=== PATIENT | male | born 1985 | race African-American/Black ===

== ENCOUNTER 2022-11-09 17:10 | Emergency (ER) | payer OTHER ==
[2022-11-09] MEDS ORDERED: morphine SULFATE 4 MG/ML VIAL IVPUSH ONE (17:16)
[2022-11-09 17:22] VITALS: BMI 30.6
[2022-11-09] MEDS ORDERED: SODIUM CHLORIDE 1,000 ML IV ONE (17:23)
[2022-11-09 17:41] LABS: BASO % 1.4 % (0-2.0); EOS % 2.5 % (0-4.5); HEMATOCRIT 39.9 % (35.4-49); LYMPH % 52.6 % (8-40); MCH 30.7 pg (25.7-33.7); MCHC 32.6 g/dl (32.0-35.9); MEAN PLT VOLUME 7.8 fl (7.5-11.1); MONO % 15.3 % (3.8-10.2); NEUT % 28.2 % (42.8-82.8); PLATELET COUNT 210 10^3/uL (134-434); RBC 4.24 M/mm3 (4.00-5.60); RDW 13.8 % (11.9-15.9); WHITE BLOOD COUNT 4.4 K/mm3 (4.0-10.0)
[2022-11-09] MEDS ORDERED: DIPHTH,PERTUSS(ACELL),TET 0.5 ML DISP.SYRIN IM ONE ×2 (17:41→18:03)
[2022-11-09 17:50] LABS: INR 1.07 (0.83-1.09); PROTHROMBIN TIME (PATIENT) 12.3 SEC (9.7-13.0)
[2022-11-09] MEDS ORDERED: morphine SULFATE 4 MG/ML VIAL ONE (18:02)
[2022-11-09 18:07] LABS: BLOOD UREA NITROGEN 11.8 mg/dL (7-18); CALCIUM 8.7 mg/dL (8.5-10.1)
[2022-11-09 18:11] LABS: CREATININE 1.1 mg/dL (0.55-1.3)
[2022-11-09 18:12] LABS: BILIRUBIN,TOTAL 0.4 mg/dL (0.2-1); TOT PROT 7.8 g/dl (6.4-8.2)
[2022-11-09] MEDS ORDERED: LIDOCAINE HCL 1%, 10 MG/ML (20ML VIAL) ONE (18:33)
[2022-11-09 21:33] VITALS: BP 134/80; PULSE 84; RESP 18
== END 2022-11-09 21:35 | disposition home or self-care (01) ==
LOC: JER 17:10
PROC: 0HQCXZZ Repair Left Upper Arm Skin, External Approach (ICD-10-PCS; principal; 2022-11-09)
PROC: 3E033GC Introduction of Other Therapeutic Substance into Peripheral Vein, Percutaneous Approach (ICD-10-PCS; 2022-11-09)
PROC: 3E0234Z Introduction of Serum, Toxoid and Vaccine into Muscle, Percutaneous Approach (ICD-10-PCS; 2022-11-09)
DX: S41.132A Puncture wound without foreign body of left upper arm, initial encounter (principal); X99.1XXA Assault by knife, initial encounter
CPT/HCPCS: 12002-25; 36415; 71046-TC-FY; 80053; 85025; 85610; 86850; 86900; 86901; 90471; 90715; 96361; 96374; 99285-25

== ENCOUNTER 2024-01-06 07:38 | Emergency (ER) | payer OTHER ==
[2024-01-06 08:04] VITALS: BMI 29.8
[2024-01-06 08:41] LABS: BASO % 0.3 % (0-2.0); EOS % 0.1 % (0-4.5); HEMATOCRIT 40.7 % (35.4-49); LYMPH % 12.4 % (8-40); MCH 32.2 pg (25.7-33.7); MCHC 34.4 g/dl (32.0-35.9); MEAN CELL VOLUME 93.7 fl (80-96); MEAN PLT VOLUME 7.4 fl (7.5-11.1); MONO % 6.4 % (3.8-10.2); NEUT % 80.8 % (42.8-82.8); PLATELET COUNT 256 10^3/uL (134-434); RBC 4.35 M/mm3 (4.00-5.60); RDW 14.1 % (11.9-15.9); WHITE BLOOD COUNT 7.4 K/mm3 (4.0-10.0)
[2024-01-06] MEDS ORDERED: levETIRAcetam 500 MG/5 ML INJECTION VIAL IVPB ONE (08:49)
[2024-01-06 08:53] LABS: PROTHROMBIN TIME (PATIENT) 11.6 SEC (9.7-13.0)
[2024-01-06 08:56] LABS: ACTIVATED PTT 27.3 SECONDS (25.2-36.5)
[2024-01-06 09:07] LABS: POTASSIUM 4.5 mmol/L (3.5-5.1)
[2024-01-06 09:09] LABS: ALBUMIN 3.9 g/dl (3.4-5.0); CALCIUM 9.7 mg/dL (8.5-10.1)
[2024-01-06 09:10] LABS: BLOOD UREA NITROGEN 14.2 mg/dL (7-18); MAGNESIUM 2.6 mg/dL (1.8-2.4)
[2024-01-06 09:13] LABS: CREATININE 1.2 mg/dL (0.55-1.3)
[2024-01-06 09:14] LABS: BILIRUBIN,TOTAL 0.2 mg/dL (0.2-1); PHOSPHOROUS 1.2 mg/dL (2.5-4.9)
[2024-01-06] MEDS: levETIRAcetam 500 MG/5 ML INJECTION VIAL IVPB ONE (09:37)
[2024-01-06] MEDS: LACTATED RINGERS SOLUTION 1000 ML INFUS.BAG IV ONE (09:55)
[2024-01-06] MEDS ORDERED: LACTATED RINGERS SOLUTION 1000 ML INFUS.BAG IV ONE (10:00)
[2024-01-06] MEDS ORDERED: NAPH,MB-DB/K PH,MBDB POWDER PACKET ONE (10:45)
[2024-01-06] MEDS ORDERED: ACETAMINOPHEN INJECTION 100 ML IVPB ONE (10:46)
[2024-01-06] MEDS: NAPH,MB-DB/K PH,MBDB POWDER PACKET PO ONE (10:59)
[2024-01-06] MEDS: ACETAMINOPHEN 1000 MG/100 ML BAG IVPB ONE (11:46)
[2024-01-06 11:57] VITALS: BP 125/77; PULSE 73; RESP 14; TEMP 97.6
[2024-01-06 12:15] LABS: PH,URINE 5.5 (5.0-8.0); URINE APPEARANCE CLOUDY; URINE BILIRUBIN NEGATIVE (NEGATIVE); URINE COLOR YELLOW; URINE GLUCOSE (UA) NEGATIVE (NEGATIVE); URINE KETONE NEGATIVE (NEGATIVE); URINE LEUK ESTERASE NEGATIVE (NEGATIVE); URINE NITRITE NEGATIVE (NEGATIVE); URINE PROTEIN NEGATIVE (NEGATIVE); URINE UROBILINOGEN 0.2 mg/dL (0.2-1.0)
== END 2024-01-06 12:12 | disposition home or self-care (01) ==
LOC: JER 07:38
PROC: 3E033NZ Introduction of Analgesics, Hypnotics, Sedatives into Peripheral Vein, Percutaneous Approach (ICD-10-PCS; principal; 2024-01-06)
PROC: 3E033GC Introduction of Other Therapeutic Substance into Peripheral Vein, Percutaneous Approach (ICD-10-PCS; 2024-01-06)
DX: G40.909 Epilepsy, unspecified, not intractable, without status epilepticus (principal); S09.90XA Unspecified injury of head, initial encounter; X58.XXXA Exposure to other specified factors, initial encounter; Z20.822 Contact with and (suspected) exposure to COVID-19
CPT/HCPCS: 0241U-QW; 36415; 70450-TC; 70486-TC; 71045-TC-FY; 80053; 80177; 81003; 82550; 82553; 82962; 83605; 83735; 84100; 84484; 85025; 85610; 85730; 86850; 86900; 86901; 87086; 93005; 93010; 96374; 96375; 99285-25; J0131